=== PATIENT | female | born 1965 | race Caucasian/White ===

== ENCOUNTER 2022-07-05 07:32 | Outpatient (CLI) | payer BC, SELFPAY | END 2022-07-05 07:33 | disposition home or self-care (01) | PROVIDERS: PCP Physician Assistant; Visit Provider Family Medicine | DX: M54.16 Radiculopathy, lumbar region (principal) | CPT/HCPCS: 62323; J0702; Q9966 ==

== ENCOUNTER 2022-09-02 19:26 | Emergency (ER) | payer BC, SELFPAY ==
[2022-09-02 19:39] VITALS: BP 136/89; PULSE 108; RESP 22; TEMP 37.1; O2SAT 98; BMI 32.1
--- NOTE | 2022-09-02 20:29 | ED_ITS ---
HPI - Abdominal Pain General Chief Complaint: Abdominal Pain Stated Complaint: possible appendix pain Time Seen by Provider: 09/02/22 20:20 History of Present Illness HPI narrative: 57-year-old woman presenting to the emergency department with complaint of increasing crampy abdominal pain. This has been going on now about 6 hours. She did have a couple bowel movements yesterday and had 1 this morning and thought that maybe she needs to have another 1 this afternoon but could not. She has not had any fever. Is mildly nauseated. Did develop COVID last week starting with a scratchy throat progressing to myalgias. She is not having shortness of breath other than the appears that pain is making her breathe fast. Has a history of hysterectomy. Also at the end of the year had a back surgery. Has not been taking pain meds now for a couple of weeks. Sounds like this was [place]. She does report some difficulty coming out of anesthesia. Related Data Home Medications Medication Instructions Recorded Confirmed No Known Home Medications 09/02/22 09/02/22 Allergies Allergy/AdvReac Type Severity Reaction Status Date / Time azithromycin [From Zithromax] Allergy Verified 09/02/22 20:36 morphine Allergy Verified 09/02/22 20:36 promethazine [From Phenergan] Allergy Verified 09/02/22 20:36 Review of Systems Status of ROS Reports: 6 or more systems reviewed and unremarkable except as noted in History and below PFSH PFS Social History Smoking Status: Never smoker How often do you have a drink containing alcohol: never AUDIT-C Alcohol total score: 0 Non-prescribed substance use: denies use Exam Narrative: Exam Narrative: Pleasant. Clearly uncomfortable. Brow is furrowed. Speaking little plain to flee has a very uncomfortable. She is mildly labored and mildly tachypneic. Heart is elevated to tachycardic rate with regular rhythm. Oropharynx is moist. Cranial nerves 2-12 intact. Lower extremities are without edema. Tattoo at the right lower leg. Negative Homans or pain to palpation. Abdomen-I can not discern bowel sounds. She is quite tender to palpation across the low abdomen. No peritoneal signs. Const: Vital Signs, click to edit/add: Vital Signs - 24 hr 09/02/22 19:39 09/02/22 21:06 09/03/22 00:30 Temperature 98.8 F Pulse Rate [Left P ulse Oximeter] 108 H 78 Respiratory Rate 22 16 Blood Pressure [Ri ght Upper Arm] 136/89 131/78 Pulse Oximetry 98 95 97 Oxygen Delivery Me thod Room Air 09/03/22 00:00 09/02/22 23:00 09/02/22 22:00 Temperature Pulse Rate [Left P ulse Oximeter] 78 84 76 Respiratory Rate 16 16 16 Blood Pressure [Ri ght Upper Arm] 130/80 133/76 137/78 Pulse Oximetry 98 97 99 Oxygen Delivery Me thod Room Air Room Air Room Air 09/03/22 06:00 09/03/22 02:00 09/03/22 05:00 Temperature Pulse Rate [Left P ulse Oximeter] 66 72 Respiratory Rate 16 16 18 Blood Pressure [Ri ght Upper Arm] 137/84 129/74 144/90 H Pulse Oximetry 98 95 95 Oxygen Delivery Me thod Room Air Room Air Room Air 09/03/22 04:00 09/03/22 03:00 Temperature Pulse Rate [Left P ulse Oximeter] 64 64 Respiratory Rate 16 18 Blood Pressure [Ri ght Upper Arm] 132/74 139/78 Pulse Oximetry 96 96 Oxygen Delivery Me thod Room Air Room Air Documenting provider has reviewed patient's vital signs: yes Course Vital Signs Vital signs: Initial Vital Signs Temperature 98.8 F 09/02/22 19:39 Temperature Source Temporal Artery Scan 09/02/22 19:39 Pulse Rate 108 H 09/02/22 19:39 Respiratory Rate 22 09/02/22 19:39 Blood Pressure 136/89 09/02/22 19:39 Blood Pressure Mean 104 09/02/22 19:39 Blood Pressure Position Sitting 09/02/22 19:39 Pulse Oximetry 98 09/02/22 19:39 Vital Signs Temperature 98.8 F 09/02/22 19:39 Pulse Rate 108 H 09/02/22 19:39 Respiratory Rate 22 09/02/22 19:39 Blood Pressure 136/89 09/02/22 19:39 Pulse Oximetry 98 09/02/22 19:39 Temperature 98.8 F 09/02/22 19:39 Pulse Rate 66 09/03/22 06:00 Respiratory Rate 16 09/03/22 06:00 Blood Pressure 137/84 09/03/22 06:00 Pulse Oximetry 98 09/03/22 06:00 Oxygen Delivery Method 09/03/22 06:00 MDM - Abdominal Pain MDM Narrative Medical decision making narrative: Think imaging be helpful to discern what is going on here. Do not think this is just standard constipation. Would have concern about a bowel obstruction. Has been ordered for IV fluids, ketorolac and fentanyl. This did seem to help a good deal with her discomfort. Is able to relax. Labs with mildly elevated transaminases And white count also slightly elevated IV contrasted CT scan of abdomen and pelvis by my read shows edematous and mildly dilated loops of small bowel. Radiology over-read notes impending small-bowel obstruction IMPRESSION: 1. Multiple loops of prominent fluid filled small bowel. Although these are not pathologically dilated, there is a transition point in the anterior mid lower abdomen, and findings are worrisome for early developing small bowel obstruction. 2. Hyperemia of the affected small bowel wall, may be secondary to obstruction versus primary inflammatory process, such as Crohn`s disease. 3. Right paraspinal fluid collection at the level of L4-L5, query recent postsurgical change of laminectomy at this level. I did discuss these findings with our general surgeon on-call. As a Roxana is not having any flatus since the morning would presume total small-bowel obstruction. Do not have any hospital beds available. Will continue to manage/board here in the emergency department with IV fluids and pain management as needed. Overall improved. Still with intermittent cramp. Did have 1 small episode of flatus. No nausea/vomiting. Reauscultation with bowel sounds now present. Only mildly uncomfortable to abdominal palpation. I discussed again with our general surgeon Dr. Ashby. Still without beds available but does seem to be a little improved. Will support going home to oral trial returning if needed. Lab Data Attestation: I reviewed the patient's lab results. Labs: Lab Results 09/02/22 09/02/22 09/02/22 Range/Units 20:25 20:25 23:55 WBC 11.62 H (4.50-11.00) K/uL RBC 5.19 (4.00-5.20) m/uL Hgb 15.4 (12.0-16.0) gm/dL Hct 46.2 (33.0-51.0) % MCV 89 (80-100) fL MCH 30 (26-34) pg MCHC 33 (32-36) gm/dL RDW Coeff of [place] 12.6 (11.5-15.5) % Plt Count 350 (140-440) K/uL Neut % (Auto) 77.6 H (42.0-72.0) % Lymph % (Auto) 15.0 L (20-44) % [place] % (Auto) 5.2 (0.0-11.0) % Eos % (Auto) 1.7 (0.0-7.0) % Baso % (Auto) 0.3 (0.0-3.0) % Neut # (Auto) 9.00 H (1.7-7.0) K/uL Lymph # (Auto) 1.70 (0.90-2.90) K/uL [place] # (Auto) 0.60 (0.00-0.90) K/UL Eos # (Auto) 0.20 (0.00-0.50) K/uL Baso # (Auto) 0.00 (0.00-0.30) K/uL Sodium 139 (135-149) mmol/L Potassium 3.7 (3.6-5.1) mmol/L Chloride 102 (96-114) mmol/L Carbon Dioxide 28 (20-32) mmol/L BUN 10 (7-30) mg/dL Creatinine 0.6 (0.5-1.5) mg/dL Estimated Creat Clear 95.33 Estimated GFR 106 ml/min Glucose 114 (60-115) mg/dL Calcium 10.1 (8.4-10.6) mg/dL Total Bilirubin 0.7 (0.1-1.5) mg/dL Direct Bilirubin 0.2 (0.0-0.5) mg/dL AST 47 H (12-35) U/L ALT 37 H (4-35) U/L Alkaline Phosphatase 121 (40-150) U/L C-Reactive Protein < 0.5 L (0.5-1.0) mg/dL Total Protein 8.2 (6.0-8.3) g/dL Albumin 4.8 (3.3-5.0) g/dL Urine Color Yellow (Yellow) Urine Appearance Clear (Clear) Urine pH 7.5 (5.0-8.5) Ur Specific [place]ler 1.010 (1.000-1.030) Urine Protein Negative (Negative) Urine Glucose (UA) Negative (Negative) Urine Ketones Negative (Negative) Urine Blood Negative (Negative) Urine Nitrite Negative (Negative) Urine Bilirubin Negative (Negative) Urine Urobilinogen 0.2 (0.2-1.0) Ur Leukocyte Esterase Negative (Negative) Urine RBC 0-2 (0-2) Urine WBC 0-2 (0-5) Ur Squamous Epith Cells None (None-Few) Urine Bacteria None (None) Discharge Plan Discharge Clinical Impression: Complete small bowel obstruction, Abdominal pain Patient Disposition: Home w/ Parent or Adult Condition: Improved Additional Instructions: Just focus on liquid intake at this point. Clear liquid diet over the next 24- 36 hours. Diluted juices, soup broths advancing to thicker soups, smoothies. Return for marked increase in persistent pain, repeated vomiting, fever. You do have your Vicodin/[place] and senna if needed. I think we discussed our concerns about these medications as well. Sherri from [employer]. Prescriptions: No Action No Known Home Medications Follow Up/Referrals: Radha Casarez PA [Primary Care Provider] - Stand Alone Forms: [facility] Info Instructions
--- NOTE | 2022-09-02 20:32 | CRLHL7_ITS ---
For Patients: As a result of the Century Cures Act, medical imaging exams and procedure reports are released immediately into your electronic medical record. You may view this report before your referring provider. If you have questions, please contact your health care provider. INDICATION: Crampy abdominal pain. TECHNIQUE: CT abdomen and pelvis acquired with 95 mL Isovue 370 contrast. COMPARISON: CT abdomen/pelvis dated 07/30/2011. FINDINGS: Lower chest: Motion artifact. Subsegmental atelectasis in the left lower lobe. No focal consolidation. Liver: Too small to characterize hypodense lesion in the left lobe, likely benign in the absence of a known malignancy. Gallbladder and bile ducts: Unremarkable. Pancreas: Unremarkable. Spleen: Unremarkable. Adrenal glands: Unremarkable. Kidneys: Kidneys enhance symmetrically, without hydronephrosis. Retroperitoneum: No lymphadenopathy. Bowel and mesentery: Normal appendix. There are multiple loops of prominent fluid-filled small bowel, although not pathologically dilated. There is a transition point in the anterior mid lower abdomen. Furthermore, there is hyperemia of the affected small bowel wall. No significant ascites. No pneumoperitoneum. Bladder: Unremarkable for degree of distension. Reproductive organs: Posthysterectomy. Pelvic lymph nodes: No lymphadenopathy. Vessels: Unremarkable. Abdominal wall: No acute abdominal wall abnormality. Bones: There is a right paraspinal fluid collection at the level of L4-L5, query recent postsurgical change of laminectomy at this level. IMPRESSION: 1. Multiple loops of prominent fluid filled small bowel. Although these are not pathologically dilated, there is a transition point in the anterior mid lower abdomen, and findings are worrisome for early developing small bowel obstruction. 2. Hyperemia of the affected small bowel wall, may be secondary to obstruction versus primary inflammatory process, such as Crohn`s disease. 3. Right paraspinal fluid collection at the level of L4-L5, query recent postsurgical change of laminectomy at this level. Please note that all CT scans at this facility use dose modulation, iterative reconstruction, and/or weight-based dosing when appropriate to reduce radiation dose to as low as reasonably achievable. Dictated by Matthias Hopkins MD @ 09/02/2022 9:21:21 PM (Electronically Signed)
[2022-09-02 20:55] LABS: Basophils Percent Auto 0.3 % (0.0-3.0); Eosinophils Percent Auto 1.7 % (0.0-7.0); Hematocrit 46.2 % (33.0-51.0); Hemoglobin* 15.4 gm/dL (12.0-16.0); Immature Granulocytes Pct Auto 0.2 %; Mean Corpuscular HGB Conc 33 gm/dL (32-36); Mean Corpuscular Hemoglobin 30 pg (26-34); Mean Corpuscular Volume 89 fL (80-100); Monocytes Percent Auto 5.2 % (0.0-11.0); Neutrophils Percent Auto 77.6 % (42.0-72.0); Platelet Count* 350 K/uL (140-440); RDW Coefficient of Variation % 12.6 % (11.5-15.5); Red Blood Count 5.19 m/uL (4.00-5.20); White Blood Count* 11.62 K/uL (4.50-11.00)
[2022-09-02 20:57] LABS: Albumin* 4.8 g/dL (3.3-5.0); Chloride* 102 mmol/L (96-114); Sodium* 139 mmol/L (135-149)
[2022-09-02 20:58] LABS: Potassium* 3.7 mmol/L (3.6-5.1)
[2022-09-02 20:59] LABS: Creatinine* 0.6 mg/dL (0.5-1.5); Est. Creatinine Clearance* 95.33; Estimated Glomerular Filt Rate 106 ml/min
[2022-09-02 21:00] LABS: Alkaline Phosphatase* 121 U/L (40-150); Aspartate Amino Transferase* 47 U/L (12-35); Bilirubin Direct* 0.2 mg/dL (0.0-0.5); Bilirubin Total* 0.7 mg/dL (0.1-1.5); Blood Urea Nitrogen* 10 mg/dL (7-30); Carbon Dioxide* 28 mmol/L (20-32); Total Protein* 8.2 g/dL (6.0-8.3)
[2022-09-02 21:01] LABS: Alanine Aminotransferase* 37 U/L (4-35); Calcium* 10.1 mg/dL (8.4-10.6); Glucose* 114 mg/dL (60-115)
[2022-09-02 21:04] LABS: C Reactive Protein* < 0.5 mg/dL (0.5-1.0)
[2022-09-02 21:06] VITALS: O2SAT 95
[2022-09-02 21:06] LABS: Slide Review Reflex No
[2022-09-02] MEDS: KETOROLAC 30 MG/ML inj IVP (21:32)
[2022-09-02] MEDS: fentaNYL 100 MCG/2 ML inj 50 MCG IVP (21:32)
[2022-09-02] MEDS: 0.9 % SODIUM CHLORIDE 1000 ml 1,000 ML IV ×2 (21:32→23:17)
[2022-09-02 22:00] VITALS: BP 137/78; PULSE 76; RESP 16; O2SAT 99
--- NOTE | 2022-09-02 22:18 | ED.NURSE ---
pt given ice chips, okd per
[2022-09-02 23:00] VITALS: BP 133/76; PULSE 84; RESP 16; O2SAT 97
[2022-09-03] VITALS (38 sets, daily range): BP systolic 129–144; BP diastolic 74–90; PULSE 64–93; RESP 16–18; O2SAT 85–99
[2022-09-03 00:01] LABS: Appearance Urine Clear (Clear); Bilirubin Urine Negative (Negative); Blood Urine Negative (Negative); Color Urine Yellow (Yellow); Glucose Urine Negative (Negative); Ketones Urine Negative (Negative); Leukocyte Esterase Urine Negative (Negative); Nitrite Urine Negative (Negative); Protein Urine Negative (Negative); Urobilinogen Urine 0.2 (0.2-1.0); pH Urine 7.5 (5.0-8.5)
[2022-09-03 00:06] LABS: RBC Urine 0-2 (0-2); WBC Urine 0-2 (0-5)
[2022-09-03] MEDS: 0.9 % SODIUM CHLORIDE 1000 ml 1,000 ML 150 ML IV (03:17)
== END 2022-09-03 09:10 | disposition home or self-care (01) ==
PROVIDERS: Emergency Provider Family Medicine; PCP Physician Assistant
DX: K56.601 Complete intestinal obstruction, unspecified as to cause (principal); R10.9 Unspecified abdominal pain
CPT/HCPCS: 36415; 74177; 80048; 80076; 81001; 85025; 86140; 94761; 96361; 96374; 96375; 99284; 99285; J1885; J3010; J7030; Q9967

== ENCOUNTER 2022-09-04 18:01 | Emergency (ER) | payer BC, SELFPAY ==
[2022-09-04 18:15] VITALS: BP 125/83; PULSE 84; RESP 16; TEMP 36.6; O2SAT 97; BMI 31.6
--- NOTE | 2022-09-04 18:43 | CRLHL7_ITS ---
For Patients: As a result of the Century Cures Act, medical imaging exams and procedure reports are released immediately into your electronic medical record. You may view this report before your referring provider. If you have questions, please contact your health care provider. INDICATION: Diarrhea. TECHNIQUE: CT abdomen and pelvis without contrast. COMPARISON: September 02, 2022. FINDINGS: Lower chest: Unremarkable. Liver: Normal in size and attenuation. No suspicious masses. Gallbladder and bile ducts: Vicarious excretion of contrast. Pancreas: Unremarkable. No mass or inflammation. Spleen: Normal in size. No masses. Adrenal glands: Normal in size. No nodules. Kidneys: Normal in size. No suspicious masses, stones, or hydronephrosis. GI tract: Re-demonstration of wall thickening, incompletely characterized on this noncontrast study, of multiple loops of distal small bowel. No bowel obstruction. Normal appendix. Vasculature: Abdominal aorta is normal in caliber. Lymph nodes: No lymphadenopathy. Peritoneum/Abdominal Wall: Unremarkable. No sign of mass or infiltration. No free air or significant free fluid. Pelvis: Unremarkable. No pelvic masses. Bones: Unchanged. Similar right paraspinal fluid collection at L4-L5. IMPRESSION: Re-demonstration of distal small bowel wall thickening, incompletely characterized on this noncontrast study, but likely involving a larger segment of bowel since prior study. Findings are suggestive of worsening enteritis, infectious/inflammatory, including Crohn`s disease. No bowel obstruction. Please note that all CT scans at this facility use dose modulation, iterative reconstruction, and/or weight-based dosing when appropriate to reduce radiation dose to as low as reasonably achievable. Dictated by Jerome Carlin MD @ 09/04/2022 7:58:23 PM (Electronically Signed)
--- NOTE | 2022-09-04 18:46 | ED_ITS ---
HPI - General Adult General Time Seen by Provider: 18:46 Date Seen: 09/04/22 Chief complaint: Diarrhea Stated complaint: diarrhea Time Seen by Provider: 09/04/22 18:28 Source: patient, family and old records reviewed Mode of arrival: ambulatory Limitations: no limitations History of Present Illness HPI narrative: 57-year-old female who comes in today with diarrhea. Patient was seen 2 days in at that time demonstrated possible developing bowel obstruction, also some hyperemia of the small bowel. Labs at that time were reassuring. Today patient developed diarrhea, called the nurse line and was told to come the emergency department. She is still having some mild low abdominal pain. She denies urinary symptoms. No fevers. No chest pain, shortness of breath, or lightheadedness. Related Data Home Medications Medication Instructions Recorded Confirmed hydrocodone 5 mg-acetaminophen 325 tab 09/04/22 mg tablet levothyroxine 88 mcg tablet mcg 09/04/22 Allergies Allergy/AdvReac Type Severity Reaction Status Date / Time azithromycin [From Zithromax] Allergy Verified 09/02/22 20:36 morphine Allergy Verified 09/02/22 20:36 promethazine [From Phenergan] Allergy Verified 09/02/22 20:36 PFSH PFSH Social History Smoking Status: Never smoker How often do you have a drink containing alcohol: never AUDIT-C Alcohol total score: 0 Non-prescribed substance use: denies use Exam Narrative: Exam Narrative: General: Well-developed and well-nourished, no acute distress Head: Atraumatic and normocephalic Eyes: Pupils are equal reactive, extraocular motions intact, conjunctiva clear ENT: External nose and ears are normal, posterior pharynx without erythema or exudate Neck: No midline cervical tenderness, full spontaneous range of motion the neck, trachea midline, no adenopathy Heart: Regular rate and rhythm no murmurs or thrills Lungs: Clear to auscultation bilaterally without wheezes or crackles Abdomen: Soft, mild diffuse lower abdominal tenderness,, nondistended with active bowel sounds Musculoskeletal: No tenderness, deformity, or edema Neurologic: Awake, alert, and oriented x3, no gross focal neurologic deficits, cranial nerves intact as tested Psych: Mood and affect are appropriate Skin: No rashes Const: Vital Signs, click to edit/add: Vital Signs - 24 hr 09/04/22 18:15 Temperature 97.8 F Pulse Rate [Right Pulse Oximeter] 84 Respiratory Rate 16 Blood Pressure [Ri ght Upper Arm] 125/83 Pulse Oximetry 97 Oxygen Delivery Me thod Room Air Course Course Hospital Course: Patient seen examined, prior records reviewed show abnormal CT scan a couple days ago with reassuring labs other than mild leukocystosis. On exam, patient has some mild abdominal tenderness, vital is stable. Patient seen a couple days ago with possible developing small bowel obstruction, now with diarrhea. She has no vomiting or abdominal is unlikely. CT scan done a couple days ago showed fluid filled loops of small bowel and hyperemia of the small bowel wall which could be from fraction inflammatory process. Based on development of watery diarrhea today, this likely represents inflammatory process or a viral enteritis. Labs are ordered along with IV fluids, repeat CT scan to re-evaluate for intra-abdominal pathology Reevaluation(s) Reevaluation #1: Labs independently by interpreted by me demonstrate normal white blood cell count, basic panel is reassuring. CT scan demonstrates continued several loops of small bowel, no evidence for obstruction, most consistent with worsening of enteritis. Given clinical history today, as well as patient having no history of, this most likely represents an infectious enteritis. Symptom management and patient can take Imodium for diarrhea Time: 20:16 Vital Signs Vital signs: Initial Vital Signs Temperature 97.8 F 09/04/22 18:15 Temperature Source Temporal Artery Scan 09/04/22 18:15 Pulse Rate 84 09/04/22 18:15 Pulse Rhythm 09/04/22 18:15 Respiratory Rate 16 09/04/22 18:15 Blood Pressure 125/83 09/04/22 18:15 Blood Pressure Mean 97 09/04/22 18:15 Pulse Oximetry 97 09/04/22 18:15 Oxygen Delivery Method 09/04/22 18:15 Vital Signs Temperature 97.8 F 09/04/22 18:15 Pulse Rate 84 09/04/22 18:15 Respiratory Rate 16 09/04/22 18:15 Blood Pressure 125/83 09/04/22 18:15 Pulse Oximetry 97 09/04/22 18:15 Oxygen Delivery Method 09/04/22 18:15 Temperature 97.8 F 09/04/22 18:15 Pulse Rate 84 09/04/22 18:15 Respiratory Rate 16 09/04/22 18:15 Blood Pressure 125/83 09/04/22 18:15 Pulse Oximetry 97 09/04/22 18:15 Oxygen Delivery Method 09/04/22 18:15 Medical Decision Making Lab Data Labs: Lab Results 09/04/22 09/04/22 Range/Units 19:20 19:20 WBC 10.57 (4.50-11.00) K/uL RBC 4.73 (4.00-5.20) m/uL Hgb 14.2 (12.0-16.0) gm/dL Hct 41.9 (33.0-51.0) % MCV 89 (80-100) fL MCH 30 (26-34) pg MCHC 34 (32-36) gm/dL RDW Coeff of [place] 12.9 (11.5-15.5) % Plt Count 292 (140-440) K/uL Neut % (Auto) 77.8 H (42.0-72.0) % Lymph % (Auto) 13.2 L (20-44) % [place] % (Auto) 6.8 (0.0-11.0) % Eos % (Auto) 0.9 (0.0-7.0) % Baso % (Auto) 0.2 (0.0-3.0) % Neut # (Auto) 8.20 H (1.7-7.0) K/uL Lymph # (Auto) 1.40 (0.90-2.90) K/uL [place] # (Auto) 0.70 (0.00-0.90) K/UL Eos # (Auto) 0.10 (0.00-0.50) K/uL Baso # (Auto) 0.02 (0.00-0.30) K/uL Sodium 139 (135-149) mmol/L Potassium 4.1 (3.6-5.1) mmol/L Chloride 106 (96-114) mmol/L Carbon Dioxide 27 (20-32) mmol/L BUN 14 (7-30) mg/dL Creatinine 0.8 (0.5-1.5) mg/dL Estimated Creat Clear 71.50 Estimated GFR 87 ml/min Glucose 99 (60-115) mg/dL Calcium 9.3 (8.4-10.6) mg/dL Discharge Plan Discharge Clinical Impression: Enteritis Patient Disposition: Home, Self-Care Condition: Stable Instructions: Acute Diarrhea (ED) Additional Instructions: Transition to regular diet over the next. You may take Imodium to help with diarrhea. Activity Level: No Restrictions Discharge Diet: Regular Prescriptions: No Action hydrocodone-acetaminophen 5-325 mg tablet Label Comments: TAKE ONE TABLET BY MOUTH THREE TIMES A DAY NEEDED FOR PAIN MAX ACETAMINOPHEN DOSE 4000MG / 24HRS levothyroxine 88 mcg tablet Label Comments: TAKE ONE TABLET BY MOUTH EVERY DAY Follow Up/Referrals: Radha Casarez PA [Primary Care Provider] - Stand Alone Forms: [facility] Info Instructions
[2022-09-04 19:31] LABS: Basophils Absolute Auto 0.02 K/uL (0.00-0.30); Basophils Percent Auto 0.2 % (0.0-3.0); Eosinophils Percent Auto 0.9 % (0.0-7.0); Hematocrit 41.9 % (33.0-51.0); Hemoglobin* 14.2 gm/dL (12.0-16.0); Immature Granulocytes Abs Auto 0.12 K/uL (0.00-0.30); Immature Granulocytes Pct Auto 1.1 %; Lymphocytes Percent Auto 13.2 % (20-44); Mean Corpuscular HGB Conc 34 gm/dL (32-36); Mean Corpuscular Hemoglobin 30 pg (26-34); Mean Corpuscular Volume 89 fL (80-100); Monocytes Percent Auto 6.8 % (0.0-11.0); Neutrophils Percent Auto 77.8 % (42.0-72.0); Platelet Count* 292 K/uL (140-440); RDW Coefficient of Variation % 12.9 % (11.5-15.5); Red Blood Count 4.73 m/uL (4.00-5.20); White Blood Count* 10.57 K/uL (4.50-11.00)
[2022-09-04] MEDS: 0.9 % SODIUM CHLORIDE 1000 ml 1,000 ML IV (19:40)
[2022-09-04 19:53] LABS: Slide Review Reflex No
[2022-09-04 19:55] LABS: Chloride* 106 mmol/L (96-114)
[2022-09-04 19:56] LABS: Potassium* 4.1 mmol/L (3.6-5.1); Sodium* 139 mmol/L (135-149)
[2022-09-04 19:58] LABS: Creatinine* 0.8 mg/dL (0.5-1.5); Estimated Glomerular Filt Rate 87 ml/min
[2022-09-04 19:59] LABS: Blood Urea Nitrogen* 14 mg/dL (7-30); Calcium* 9.3 mg/dL (8.4-10.6); Carbon Dioxide* 27 mmol/L (20-32); Glucose* 99 mg/dL (60-115)
[2022-09-04] MEDS: LOPERAMIDE HCL 2 MG CAPSULE PO (20:27)
== END 2022-09-04 20:44 | disposition home or self-care (01) ==
PROVIDERS: Emergency Provider Family Medicine; PCP Physician Assistant
DX: K52.9 Noninfective gastroenteritis and colitis, unspecified (principal)
CPT/HCPCS: 36415; 74176; 80048; 85025; 99284; A9270; J7030

== ENCOUNTER 2024-02-21 16:15 | Outpatient (RCR) | payer OTHER, SELFPAY | END 2024-06-20 23:59 | disposition home or self-care (01) | PROVIDERS: PCP Family Medicine; Visit Provider Orthopaedic Surgery Sports Medicine | DX: M17.11 Unilateral primary osteoarthritis, right knee (principal); Z96.651 Presence of right artificial knee joint; M25.561 Pain in right knee; M62.81 Muscle weakness (generalized); Z51.89 Encounter for other specified aftercare | CPT/HCPCS: 97110; 97161 ==

== ENCOUNTER 2024-02-28 06:04 | Day surgery (SDC) | payer OTHER, SELFPAY ==
[2024-02-28] VITALS (17 sets, daily range): BP systolic 102–150; BP diastolic 66–96; PULSE 56–82; RESP 7–18; TEMP 35.8–36.6; O2SAT 92–100; BMI 32.8
[2024-02-28] MEDS: ACETAMINOPHEN 500 MG TABLET 1000 MG PO (06:20)
[2024-02-28] MEDS: OXYCODONE (CR) 10 MG TAB.ER.12H PO (06:20)
[2024-02-28] MEDS: LACTATED RINGERS 1000 ML 1,000 ML 100 ML IV ×3 (06:30→12:35)
[2024-02-28] MEDS: SODIUM CHLORIDE 0.9 % (FLUSH) 10 ML SYRINGE IVF (06:30)
--- NOTE | 2024-02-28 07:07 | PM.ORPRC ---
Procedure Note Date of procedure: 02/28/24 Procedure: PREOPERATIVE DIAGNOSIS: 1. Right knee osteoarthritis, primary, severe POSTOPERATIVE DIAGNOSIS: 1. Right knee osteoarthritis, primary, severe PROCEDURE: 1. Right total knee arthroplasty SURGEON: Quang Garcia MD. OPERATIONS OFFICER AFLOAT: HSAMIKA Yeboah - Of note, a skilled catering administrative assistant was critical for this case to aid in patient positioning, tissue retraction, limb manipulation/positioning, and closure. ANESTHESIA: Spinal anesthetic EBL: 50ml IMPLANTS: DePuy J&J uncemented femur/tibia, cemented patella TKA - Attune Press fit PS femur size 4 regular, size 4 tibia, 5 poly spacer, 35 mm cemented patella TOURNIQUET: 90 min at 300 torr COMPLICATIONS: None evident INDICATIONS: The patient is a pleasant 59-year-old female who has experienced severe right knee pain and difficulty bearing weight. Workup included x-rays which revealed severe osteoarthrosis in the knee. Given the deformity, the dysfunction, and the pain, as well as the failure of nonoperative management, recommendation was made for surgery. FINDINGS: Full-thickness chondral loss diffusely throughout the medial and patellofemoral compartment. To lesser degree lateral compartment. Degenerative meniscus pathology. Small effusion upon entering the joint. Relatively strong/healthy bone quality. DESCRIPTION OF PROCEDURE: Following a thorough discussion of risks, benefits, and alternatives consent was obtained and the right knee was marked. The patient was brought to the operating room and placed supine on the operating table. Induction of anesthesia was undertaken. 2 g IV Ancef and 1 g tranexamic acid was administered within 1 hr of incision preoperatively. Proper time-out was performed identifying proper patient, site, procedure. The operative extremity was prepped and draped in the appropriate sterile fashion using ChloraPrep after the patient was positioned supine with all bony prominences well padded. A longitudinal, anterior, midline skin incision was made starting approximately 3cm proximal to the superior pole of the patella and advanced distal to the tibial tubercle. A sub vastus approach was utilized. After mobilizing the patella, retropatellar fatpad was resected and the synovium in the suprapatellar pouch excised to visualize the anterior femoral cortex. We began with cutting the patella to help improve mobility of this patella and quad tendon. The patella was initially measured and found have a thickness of 22 mm. It was resected back to approximately 14 mm. Femoral preparation was performed via an intramedullary guide. Step drill allowed access into the femoral canal. The distal cutting guide was placed with 5? of valgus and 11 mm cut on the distal femur due to a 5-7 degree flexion contracture. Femur was sized using a anterior referencing guide in 3? of external rotation. This found have a best fit with the sizing noted above. The 4 in 1 cutting block was then placed, and the distal femur shaped accordingly. The box cut was then created and the trial implant inserted to confirm appropriate fit. We turned our attention to the proximal tibia. Extramedullary guide was utilized for cutting with the goal of being 90 degree cut from the mechanical axis of the tibia in the varus/valgus plane utilizing tibial crest as the primary alignment. Initially a 2 mm resection was performed from the medial tibial plateau. Ultimately, balancing was achieved in both flexion and extension in both varus and valgus. The knee was able to achieve full extension comfortably. It was sized to be a best fit with as noted above. The patella prep was completed with drilling and a trial placed. At this stage, trial implants were removed, the tibia and femoral components were opened and inserted. Thereafter, the patella was thoroughly irrigated normal saline and dried. The cement was previously mixed on the back table and cement placed followed by the implant. This was clamped and allowed remained stable until the cement cured. The real poly spacer was opened and inserted. All extra cement was removed, and a 3 min Betadine soak performed. Finally, a final irrigation round with normal saline was performed. Closure performed with 0 PDS and #0 Stratafix for the quad tendon/retinaculum. 2-0 Vicryl/Stratafix for the subcutaneous and 4-0 Monocryl for subcuticular closure. Dressings were applied and the patient was awoken from anesthesia after the tourniquet deflated and transferred the PACU in stable condition. A skilled catering administrative assistant was critical for this case to aid in patient positioning, tissue retraction, bone exposure, limb manipulation/positioning, patient safety, and closure. PLAN: 1. Weight bear as tolerated operative extremity. 2. 23 hr perioperative antibiotics. 3. Ice. 4. PT/OT consults for ambulation assistance/mobility education. 5. Social work consult for discharge planning. 6. DVT prophylaxis with at SCDs, Elliot Hose, and aspirin twice daily.
--- NOTE | 2024-02-28 07:09 | W.PM.H&PU ---
History & Physical Update History & Physical Update H&P Reviewed and patient assessed: No changes noted
[2024-02-28] MEDS: MIDAZOLAM HCL 1 MG/ML inj IVP (07:15)
[2024-02-28] MEDS: fentaNYL 100 MCG/2 ML inj IVP (07:15)
--- NOTE | 2024-02-28 07:25 | SUR.PREOP ---
TIME?OUT:?0715 PT/Olive SHAFER RN/Larry BECK MDA?VERIFICATION?OF?SURGICAL?SITE,?PROCEDURE,?AND?CONSENT OBTAINED?PRIOR?TO?INVASIVE?PROCEDURE.
[2024-02-28] MEDS: CEFAZOLIN 2 GM in 0.9 % SODIUM CHLORIDE Mini-bag 100 ML IVPB (07:40)
[2024-02-28] MEDS: TRANEXAMIC ACID 100 MG/ML INJ 1000 MG IV (07:42)
--- NOTE | 2024-02-28 09:32 | W.ANESCHARGE ---
Anesthesia Charges Start Date/Time Anesthesia Start Date: 02/28/24 Anesthesia Start Time: 07:23 Stop Date/Time Anesthesia Stop Date: 02/28/24 Anesthesia Stop Time: 09:30
--- NOTE | 2024-02-28 09:35 | W.ANESCHARGE ---
Anesthesia Charges Start Date/Time Anesthesia Start Date: 02/28/24 Anesthesia Start Time: 07:23 Stop Date/Time Anesthesia Stop Date: 02/28/24 Anesthesia Stop Time: 09:30
--- NOTE | 2024-02-28 09:36 | P.NB_ITS ---
Nerve Block Nerve Block Time Seen by Provider: 07:18 Date Seen: 02/28/24 Type of block requested by surgeon for post-operative analgesia: geniculars Side: right Time out performed: Yes Verification of patient name: Yes Verification of date of : Yes Site marking: site marked Name of person performing procedure: Howard Continuous monitoring Was continuous monitoring of O2 sat, B/P, playground monitor, recorded every 15 minutes?: Yes Procedure Checklist: sterile prep, needles and gloves Medications given in 5ml increments after negative aspiration: Ropivicaine %: 0.5 mL: 9 Needle gauge: 25 Patient tolerated procedure well: Yes Block Charges Block Charge (with Pro Fee): Genicular Nerve Block Use of Ultrasound Machine for Block: No
--- NOTE | 2024-02-28 09:36 | W.PM.NB ---
Nerve Block Nerve Block Time Seen by Provider: 07:18 Date Seen: 02/28/24 Type of block requested by surgeon for post-operative analgesia: adductor canal Side: right Time out performed: Yes Verification of patient name: Yes Verification of date of : Yes Site marking: site marked Name of person performing procedure: Howard Continuous monitoring Was continuous monitoring of O2 sat, B/P, director quality systems, recorded every 15 minutes?: Yes Procedure Checklist: sterile prep, needles and gloves Ultrasound guided. Images saved: Yes Medications given in 5ml increments after negative aspiration: Ropivicaine %: 0.5 mL: 20 Needle gauge: 20 Decadron (mg): 10 Precedex (mcg): 25 Patient tolerated procedure well: Yes Additional comments: Needle noted adjacent to nerve Block Charges Block Charge (with Pro Fee): Femoral Nerve Use of Ultrasound Machine for Block: Yes- US Guidance/pain block
--- NOTE | 2024-02-28 09:42 | CRLHL7_ITS ---
For Patients: As a result of the Century Cures Act, medical imaging exams and procedure reports are released immediately into your electronic medical record. You may view this report before your referring provider. If you have questions, please contact your health care provider. INDICATION: Postop. TECHNIQUE: Portable two-view study right knee. FINDINGS: Total knee arthroplasty on the right. Anatomic alignment and intact hardware. Dictated by Shaylee Chavarria MD @ 02/29/2024 1:56:44 PM (Electronically Signed)
[2024-02-28] MEDS: METOCLOPRAMIDE HCL 5 MG/ML INJ 10 MG IVP (12:35)
== END 2024-02-28 14:45 | disposition home or self-care (01) ==
PROVIDERS: PCP Family Medicine; Visit Provider Orthopaedic Surgery Sports Medicine
PROC: (CPT 27447; principal; 2024-02-28 07:15)
DX: M17.11 Unilateral primary osteoarthritis, right knee (principal); G89.18 Other acute postprocedural pain; R73.03 Prediabetes
CPT/HCPCS: 27447; 01402; 64447; 64454; 73560; 76942; 97110; 97116; 97161; 97530; A9270; C1776; J0690; J1100; J2250; J2405; J2704; J2765; J2795; J3010; J7120

== ENCOUNTER 2024-03-05 12:18 | Outpatient (CLI) | payer OTHER, SELFPAY ==
--- NOTE | 2024-03-05 12:00 | CRLHL7_ITS ---
For Patients: As a result of the Century Cures Act, medical imaging exams and procedure reports are released immediately into your electronic medical record. You may view this report before your referring provider. If you have questions, please contact your health care provider. INDICATION: Leg pain and swelling. TECHNIQUE: Ultrasound venous duplex right lower extremity. Compression venous exam was performed using caicedo-scale, color Doppler, and spectral Doppler analysis. COMPARISON: None. FINDINGS: Patent right common femoral vein, femoral vein, and popliteal vein. The calf veins are difficult to sonographically visualized, however, there is probable deep venous thrombosis in the right peroneal veins as they are not definitely compressible and there appears to be echogenic material within the lumen. IMPRESSION: The calf veins are difficult to sonographically visualized, but there is probably deep venous thrombosis in the right peroneal veins. Dictated by Reggie Prado MD @ 03/05/2024 1:14:28 PM (Electronically Signed)
--- OUTSIDE RECORDS SUMMARY | 2024-03-05 12:22 | XMS_ITS | Clinical Summary ---
Author Organization [facility] Address [place], [place] [address] Care Team Providers Care Regional Clinical Director Name Role Phone Shirley Lopez MD Primary Care Provider Allergies Active Allergy Reactions Criticality Noted Date Comments Adhesive Tape-Silicones Rash 09/13/2022 Fentanyl Other - Describe In Comment Field 02/14/2024 Difficulty waking from surgery Morphine Agitation 06/09/2017 Promethazine Paresthesias 03/20/2012 Azithromycin Diarrhea 03/05/2009 Medications Medication Sig Dispensed Refills Start Date End Date Status cholecalciferol (VITAMIN D) 1,000 unit tabletIndications:Stiven ramos physical exam Take 1 tablet by mouth once daily. 0 05/23/2017 Active multivitamin (MVI) tablet Take 1 Tablet by mouth once daily. 0 09/30/2021 Active levothyroxine (SYNTHROID) 88 mcg tabletIndications:Acqui red hypothyroidism Take 1 Tablet (88 mcg) by mouth once daily. 100 Tablet 3 04/14/2023 Active Active Problems Problem Noted Date Diagnosed Date Primary osteoarthritis of right knee 11/24/2023 Primary osteoarthritis of left knee 11/24/2023 Complete small bowel obstruction 04/14/2023 Prediabetes 08/02/2022 Routine adult health maintenance 06/09/2017 Overview: Colonoscopy 06/2017 normal repeat in 10 years Seasonal affective disorder 05/23/2017 Migraine Unspecified hypothyroidism Encounters Date Type Department Care Team Description 02/28/2024 Orders Only [facility] Scanner 1 scan: (1-Ord) [facility], KNEE RT 2 VIEW, 02/28/2024 02/16/2024 [facility]phone [facility] [address] [place] [address] Shirley Lopez MD Results 02/14/2024 12:40 PM CDT [facility] [address] [facility] [address] Shirley Lopez MD Preoperative Exam (02/28/24 Right knee replacement [facility] ) 02/14/2024 Travel from Last 3 Months Immunizations Name Administration Dates Next Due COVID-19 vaccine ([email or web address] 30mcg/0.3mL) PF, MDV 06/04/2021,05/12/2021 Influenza Intradermal PF 18-64 yrs 05/27/2016 Influenza, IIV4 05/18/2022,,05/30/2020,2018,05/30/2018,06/01/2017 Td (Age >=7 Years) 08/08/2003 Tdap 05/01/2021,07/05/2011 Family History Medical History Relation Name Comments Alcoholism Brother Depression Brother Diabetes Brother Migraines Brother Obesity Brother Alcoholism Father Depression Father Diabetes Father Heart Disease Father 84 yr Hyperlipidemia Father Hypertension Father Kidney disease Father Obesity Father Asthma Maternal Aunt 1 Cancer-colon Maternal Aunt 2 Thyroid Disease Maternal Aunt 3 Stroke Maternal Aunt 4 Arthritis Mother Cancer Mother Depression Mother Diabetes Mother 76 yr Hypertension Mother Migraines Mother Obesity Mother Psychiatric illness Mother Cancer-breast Other Niece Alcoholism Sister 1 Cancer Sister 1 thyroid Depression Sister 1 Diabetes Sister 1 Migraines Sister 1 Obesity Sister 1 Diabetes Sister 2 Psychiatric illness Sister 3 Relation Name Status Comments Brother Father Maternal Aunt 1 Maternal Aunt 2 Maternal Aunt 3 Maternal Aunt 4 Mother Other Sister 1 Sister 2 Sister 3 Social History Tobacco Use Types Packs/Day Years Used Date Smoking Tobacco: Never Smokeless Tobacco: Never Tobacco Cessation:Counseling Given: Yes Alcohol Use Standard Drinks/Week Comments Yes 0 (1 standard drink = 0.6 oz pur e alcohol) occasional PHQ-2 Answer Date Recorded PHQ-2 TOTAL SCORE 2 04/14/2023 Social Connections Answer Date Recorded Frequency of Communication with Friends and Fami ly 0 02/14/2024 Financial Resource Strain Answer Date R ecorded Difficulty of Paying Living Expenses 3 02/14/2024 Difficulty of Paying Living Expenses Not on file 02/14/2024 Food Insecurity Answer Date Recorded Worried About Running Out of Food in the Last Ye ar 1 02/14/2024 Transportation Needs Answer Date Record ed Lack of Transportation (Medical) 1 02/14/2024 Housing Stability Answer Date Recorded Unable to Pay for Housing in the Last Year 1 02/14/2024 Sex and Gender Information Value Date Recorded Sex Assigned at Not on file Gender Identity Not on file Sexual Orientation Not on file Obstetrics History Para Term AB IAB SAB Ectopic Multiple Livin g Live Births 3 3 3 3 Date Outcome GA Total Labor Labor/2nd/3rd Weight Sex Type Anes PTL Nisreen A1 A5 Name Clin Term Term Term Last Filed Vital Signs Vital Sign Reading Time Taken Comments Blood Pressure 122/83 02/14/2024 12:46 PM CDT Pulse 75 02/14/2024 12:46 PM CDT Temperature 37.2 ??C (99 ??F) 08/22/2023 6:49 PM SENIOR ELECTRICAL DESIGNER Respiratory Rate 18 08/22/2023 6:49 PM SENIOR ELECTRICAL DESIGNER Oxygen Saturation 97% 02/14/2024 12:46 PM CDT Inhaled Oxygen Concentration - - Weight 89.4 kg (197 lb) 02/14/2024 12:46 PM CDT Height 163.6 cm (5' 4.41) 04/14/2023 2:40 PM CD T Body Mass Index 33.39 04/14/2023 2:40 PM CDT Plan of Treatment Health Maintenance Due Date Last Done Comments HIV for age 15-65 1982 Zoster (shingles) series for age 50+ (1 of 2) 2017 COVID-19 vaccine series ( season) 2023 06/04/2021, 05/12/2021 Influenza for age 50-64 04/07/2024 05/18/20, 05/01/2021, 05/30/2020, Additional history exists BMI (ht and wt on same day) for age 18+ 04/14/2024 04/14/2023, 08/02/2022, 07/14/2022, Additional history exists Depression screening for age 12+ 04/14/2024 04/14/2023, 05/19/2022, 04/20/2021, Additional history exists Mammogram for age 45-75 05/17/2024 05/17/20 23, 05/04/2020, 06/01/2017, Additional history exists Colonoscopy through age 75 06/09/202706/09, 06/09/2017, 06/09/2017 Lipids for age 45-75 04/14/2028 04/14/2023, 05/19/2022, 04/20/2021, Additional history exists Tetanus booster 05/01/2031 05/01/2021, 06/08, 08/08/2003 Tdap Completed 05/01/2021, 07/05/2011 Hepatitis C screening for age 18-79 Completed 05/19/2022 Pneumococcal series for age 6-64 Aged Out No longer eligible based on patient's age to complete this topic Procedures Procedure Name Priority Date/Time Associated Diagnosis Comments SCAN-RADIOLOGY REPORT 02/28/2024 12:00 AM CDT CBC WITH AUTO DIFFERENTIAL Routine 02/14/2024 1:32 PM CDT Fatigue, unspecified type TSH WITH REFLEX Routine 02/14/2024 1:32 PM CDT Fatigue, unspecified type CBC WITH AUTO DIFFERENTIAL Routine 02/14/2024 1:32 PM CDT Fatigue, unspecified type COMP METABOLIC PANEL Routine 02/14/2024 1:32 PM CDT Fatigue, unspecified type HEMOGLOBIN A1C SCREENING Routine 02/14/2024 1:32 PM CDT Prediabetes XR MAMMO BILAT SCREENING Routine 05/17/2023 3:32 PM CDT Encounter for screening mammogram for malignant neoplasm of breast LIPID PANEL W REFLEX MEASURED LDL Routine 04/14/2023 3:47 PM CDT Screening for lipid disorders ANTI HCV Routine 05/19/2022 10:50 AM CDT Need for hepatitis C screening test COLONOSCOPY 06/09/2017 8:22 AM CDT from Last 3 Months or Most Recently Relevant to Health Maintenance Results * SCAN-RADIOLOGY REPORT (02/28/2024 12:00 AM CDT) Anatomical Region Laterality Modality Other Scanner OTHER * CBC WITH AUTO DIFFERENTIAL (02/14/2024 1:32 PM CDT) WHITE BLOOD COUNT 6.1 4.5 - 11.0 thou/cu mm 02/14/2024 1:40 PM CDT [facility] RED BLOOD COUNT 4.74 4.00 - 5.20 mil/cu mm 02/14/2024 1:40 PM CDT [facility] HEMOGLOBIN 14.3 12.0 - 16.0 g/dL 02/14/2024 1:40 PM CDT [facility] HEMATOCRIT 42.6 33.0 - 51.0 % 02/14/2024 1:40 PM CDT [facility] MCV 90 80 - 100 fL 02/14/2024 1:40 PM CDT [facility] MCH 30.2 26.0 - 34.0 pg 02/14/2024 1:40 PM CDT [facility] MCHC 33.6 32.0 - 36.0 g/dL 02/14/2024 1:40 PM CDT [facility] RDW 13.9 11.5 - 15.5 % 02/14/2024 1:40 PM CDT [facility] PLATELET COUNT 270 140 - 440 thou/cu mm 02/14/2024 1:40 PM CDT [facility] MPV 9.3 6.5 - 11.0 fL 02/14/2024 1:40 PM CDT [facility] % NEUT 56.0 % 02/14/2024 1:40 PM CDT [facility] % LYMPH 33.0 % 02/14/2024 1:40 PM CDT [facility] % MONO 8.2 % 02/14/2024 1:40 PM CDT [facility] % EOS 2.1 % 02/14/2024 1:40 PM CDT [facility] % BASO 0.7 % 02/14/2024 1:40 PM CDT [facility] ABSOLUTE NEUTROPHILS 3.4 1.7 - 7.0 thou/cu mm 02/14/2024 1:40 PM CDT [facility] ABSOLUTE LYMPHOCYTES 2.0 0.9 - 2.9 thou/cu mm 02/14/2024 1:40 PM CDT [facility] ABSOLUTE MONOCYTES 0.5 <0.9 thou/cu mm 02/14/2024 1:40 PM CDT [facility] ABSOLUTE EOSINOPHILS 0.1 <0.5 thou/cu mm 02/14/2024 1:40 PM CDT [facility] ABSOLUTE BASOPHILS 0.0 <0.3 thou/cu mm 02/14/2024 1:40 PM CDT [facility] Blood BLOOD SPECIMEN / Unknown Venipuncture / Unknown 02/14/2024 1:32 PM CDT 02/14/2024 1:32 PM CDT Shirley Lopez MD HEMATOLOGY [facility] [address] [place] [address], * HEMOGLOBIN A1C SCREENING (02/14/2024 1:32 PM CDT) HEMOGLOBIN A1C SCREENING 5.9 <=6.4 % 02/15/2024 9:06 AM CDT [facility] Blood BLOOD SPECIMEN / Unknown Venipuncture / Unknown 02/14/2024 1:32 PM CDT 02/14/2024 1:32 PM CDT Narrative [facility] - 02/15/2024 9:06 AM CDT ? (<5.7%) ?Normal ? (5.7% to 6.4%) ? Indicates prediabetes ? (>=6.5%) ? Confirms diabetes Falsely low levels may be seen with: Recent Transfusion, Recent Significant Blood Loss, Hemolytic Diseases, or Falsely elevated levels may be seen with: Untreated Anemias, Splenectomy Shirley Lopez MD CHEMISTRY Performing Organization Address [facility] de Phone Number [facility] [address] [place] [id number], * TSH WITH REFLEX (02/14/2024 1:32 PM CDT) TSH 2.17 0.27 - 4.20 uIU/mL 02/15/2024 1:33 AM CDT [facility] Blood BLOOD SPECIMEN / Unknown Venipuncture / Unknown 02/14/2024 1:32 PM CDT 02/14/2024 1:32 PM CDT Narrative [facility] - 02/15/2024 1:33 AM CDT In Adults, TSH values between 5.00 and 10.00 uIU/ml do not necessarily indicate the presence of Hypothyroidism. Correlation with clinical findings such as presence of goiter and/or Thyroperoxidase (TPO) Antibody may be helpful. For more information please refer to DYLAN 2004; 291: 228-238. Shirley Lopez MD CHEMISTRY Performing Organization Address [facility] de Phone Number [facility] [address] [place] [id number], * (ABNORMAL) COMP METABOLIC PANEL (02/14/2024 1:32 PM CDT) Pathologist [facility] SODIUM 141 136 - 145 mmol/L 02/15/2024 1:33 AM CDT [facility] POTASSIUM 4.0 3.5 - 5.1 mmol/L 02/15/2024 1:33 AM CDT [facility] CHLORIDE 104 98 - 107 mmol/L 02/15/2024 1:[address] [facility] CO2,TOTAL 26 22 - 29 mmol/L 02/15/2024 1:[address] [facility] ANION GAP 11 5 - 18 02/15/2024 1:[address] [facility] GLUCOSE 92 70 - 99 mg/dL 02/15/2024 1:[address] [facility] CALCIUM 9.5 8.6 - 10.0 mg/dL 02/15/2024 1:[address] [facility] BUN 17 6 - 20 mg/dL 02/15/2024 1:[address] [facility] CREATININE 0.71 0.50 - 0.90 mg/dL 02/15/2024 1:[address] [facility] BUN/CREAT RATIO 24(H) 10 - 20 1:[address] [facility] eGFR >90 >90 mL/min/1.7 3m2 02/15/2024 1:[address] [facility] Comment:As of 2021, eG FR is calculated by the CKD-EPI creatinine equation without race adjustment. ??eGFR can be influenced by muscle mass, exercise, and diet. ??The reported eGFR is an estimation only and is only applicable if the renal function is stable. ALBUMIN 4.7 4.0 - 4.9 g/dL 02/15/2024 1:[address] [facility] PROTEIN,TOTAL 7.4 6.0 - 8.0 g/dL 02/15/2024 1:[address] [facility] BILIRUBIN,TOTAL 0.4 0.0 - 1.2 mg/dL 02/15/2024 1:[address] [facility] ALK PHOSPHATASE 115(H) 35 - 104 IU/L 02/15/2024 1:[address] [facility] ALT (SGPT) 38(H) 10 - 35 IU/L 02/15/2024 1:[address] [facility] AST (SGOT) 35 10 - 35 IU/L 02/15/2024 1:33 AM CDT [facility] Blood BLOOD SPECIMEN / Unknown Venipuncture / Unknown 02/14/2024 1:32 PM CDT 02/14/2024 1:32 PM CDT Shirley Lopez MD CHEMISTRY [facility] [address] [place] [address], * XR MAMMO BILAT SCREENING (05/17/2023 3:32 PM CDT) Anatomical Region Laterality Modality BREASTS, Breast Left, Breast Right Bilateral Mammography Impressions 05/17/2023 4:01 PM CDT ??There is no radiographic evidence for malignancy. ??Recommend annual mammograms. MAMMOGRAM ASSESSMENT: ??ACR 1 Negative PATIENTS: You will also receive a letter with your examination results in an easy to read format. ??If you have questions about your results, please contact your referring provider. Narrative 05/17/2023 4:01 PM CDT For Patients: As a result of the Century Cures Act, medical imaging exams and procedure reports are released immediately into your electronic medical record. You may view this report before your referring provider. If you have questions, please contact your health care provider. XR MAMMO BILAT SCREENING [[id number]] CLINICAL HISTORY: ??This is an asymptomatic 58 y.o. patient. INDICATION FOR EXAM: Mammogram Screening. TECHNIQUE: CC & MLO views were obtained. ??This study was evaluated with the assistance of Computer-Aided Detection. COMPARISON FILM: Yes 05/04/20 [facility] [email or web address] 06/01/17 [facility] FINDINGS: ??The breasts have scattered areas of fibroglandular density. There are no dominant masses, suspicious micro calcifications or areas of architectural distortion. Shirley Lopez MD MAMMO * (ABNORMAL) LIPID PANEL W REFLEX MEASURED LDL (04/14/2023 3:47 PM CDT) CHOLESTEROL,TOTAL 195 100 - 199 mg/dL 04/15/2023 4:40 AM CDT [facility] Comment: Cholesterol, Total Reference Ranges Desirable <200 mg/dL Borderline 200-239 mg/dL High >=240 mg/dL TRIGLYCERIDES 360(H) <150 mg/dL 04/15/2023 4:40 AM CDT [facility] HDL CHOLESTEROL 44 >40 mg/dL 4:40 AM CDT [facility] NON-HDL CHOLESTEROL 151(H) <145 mg/dl 04/15/2023 4:40 AM CDT [facility] CHOL/HDL RATIO 4.43 <4.50 04/15/2023 4:40 AM CDT [facility] LDL CHOLESTEROL 79 <=130 mg/dL 04/15/2023 4:40 AM CDT [facility] VLDL CHOLESTEROL 72(H) <=30 mg/dL 04/15/2023 4:40 AM CDT [facility] PROVIDER ORDERED STATUS RANDOM 04/15/2023 4:40 AM CDT [facility] Blood BLOOD SPECIMEN / Unknown Venipuncture / Unknown 04/14/2023 3:47 PM CDT 04/14/2023 3:47 PM CDT Shirley Lopez MD CHEMISTRY [facility] [address] [place] [id number], * ANTI HCV (05/19/2022 10:50 AM CDT) Pathologist [facility] HEPATITIS C ANTIBODY Non-React tamica Non-React tamica 05/20/2022 3:39 AM CDT [facility] Comment:Antibodies to HCV no t detected; does not exclude the possibility of exposure to HCV. Blood BLOOD SPECIMEN / Unknown Venipuncture / Unknown 05/19/2022 10:50 AM CDT 05/19/2022 10:54 AM CDT Radha MCDONOUGH SEND OUTS [facility] [address] [place] [address], * COLONOSCOPY (06/09/2017 8:22 AM CDT) 06/09/2017 8:22 AM CDT Narrative Transcriptions Ellis Mejia MD - 06/09/2017 8:59 AM CDT Patient Name: Roxana Bisping Procedure Date: 06/09/2017 Gender: Female Date of : 1965 Admit Type: Outpatient Procedure: Colonoscopy Proceduralist: Ellis Mejia MD , Chen William (Nurse) Indications/Pre-Op Diagnosis: Screening for colorectal malignant neoplasm, Last colonoscopy: date unknown (unable to locate last colonoscopy report), Last colonoscopy 10 years ago Medications: Midazolam 2 mg IV, Fentanyl 200 microgramsIV, The level of sedation administered wasmoderate Procedure Description: The patient had risks, benefits and alternatives explained to andgave informed consent. The patient had a stable cardiopulmonary status and judged an adequate candidate for conscious sedation. The [id number] was passed through the anus and advanced tothe cecum, identified by appendiceal orifice and ileocecal valve. The colonoscopy was performed without difficulty. The patient toleratedthe procedure well. The quality of the bowel preparation was excellent.The ileocecal valve, appendiceal orifice, and rectum were photographed. Complications: No immediate complications. Estimated Blood Loss & Specimen: Estimated blood loss: none. Specimen collected - None Findings: The perianal and digital rectal examinations were normal. The entire examined colon appeared normal on direct and retroflexion views. Impressions/Post-Op Diagnosis: - The entire examined colon is normal on direct and retroflexionviews. - No specimens collected. Recommendation: - Patient has a contact number available for emergencies. The signsand symptoms of potential delayed complications were discussed with the patient. Return to normal activities tomorrow. Written discharge instructions were provided to the patient. - Resume previous diet. - Continue present medications. - Repeat colonoscopy in 10 years for screening purposes. Moderate Sedation: Moderate (conscious) sedation was administered by the endoscopy nurse and supervised by the endoscopist. The following parameters were monitored: oxygen saturation, heart rate, respiratory rate, blood pressure, adequacy of pulmonary ventilation and reponse to care. [facility] flow[facility]ets and nursing notes for moderate sedation details. Total physician intraservice time was 17 minutes. Ellis Mejia MD 06/09/2017 8:59:00 AM This report has been signed electronically. Note Initiated On: 06/09/2017 8:22 AM Procedure Code(s): --- Professional --- 48838, Colonoscopy, flexible; diagnostic, including collection of specimen(s) bybrushing or washing, when performed (separateprocedure) Diagnosis Code(s): --- Professional --- Z12.11, Encounter for screening formalignant neoplasm of colon CPT copyright 2016 [employer]. All rights reserved. The codes documented in this report are preliminary and upon commercial loan analyst reviewmay be revised to meet current compliance requirements. Scope In: 8:40:43 AM Scope Withdrawal Time 0 hours 8 minutes 48 seconds Scope Out: 8:55:10 AM Ellis Mejia MD PROCEDURE ORD from Last 3 Months or Most Recently Relevant to Health Maintenance Advance Directives * Full Code (Latest Code Status on File) Date Activated Date Inactivated Comments 08/05/2022 10:49 AM 08/06/2022 2:31 PM Question Answer Comments Code Status Discussion: Per Existing Order Care Teams Regional Clinical Director Relationship Specialty Start Date End Date Shirley Lopez MD [address] [place] [address] PCP - General Family Practice 04/14/23
== END 2024-03-05 12:19 | disposition home or self-care (01) ==
LOC: US 12:21
PROVIDERS: PCP Family Medicine; Visit Provider Physician Assistant Surgical
DX: I82.409 Acute embolism and thrombosis of unspecified deep veins of unspecified lower extremity (principal); M79.604 Pain in right leg
CPT/HCPCS: 93971

== ENCOUNTER 2024-05-09 06:07 | Day surgery (SDC) | payer OTHER, SELFPAY ==
[2024-05-09] VITALS (12 sets, daily range): BP systolic 131–159; BP diastolic 78–109; PULSE 80–99; RESP 10–16; TEMP 36.6–37.2; O2SAT 92–98; BMI 33.4
--- OUTSIDE RECORDS SUMMARY | 2024-05-09 06:10 | XMS_ITS | Clinical Summary ---
Author Organization [facility] Address [place], [place] [address] Care Team Providers Care Sweatband Perforator Name Role Phone Shirley Lopez MD Primary Care Provider Allergies Active Allergy Reactions Criticality Noted Date Comments Adhesive Tape-Silicones Rash 09/13/2022 Fentanyl Other - Describe In Comment Field 02/14/2024 Difficulty waking from surgery Morphine Agitation 06/09/2017 Promethazine Paresthesias 03/20/2012 Azithromycin Diarrhea 03/05/2009 Medications Medication Sig Dispensed Refills Start Date End Date Status cholecalciferol (VITAMIN D) 1,000 unit tabletIndications:Yesenia ual physical exam Take 1 tablet by mouth once daily. 0 05/23/2017 Active multivitamin (MVI) tablet Take 1 Tablet by mouth once daily. 0 09/30/2021 Active levothyroxine (SYNTHROID) 88 mcg tabletIndications:Acq uired hypothyroidism Take 1 Tablet (88 mcg) by mouth once daily. 100 Tablet 3 04/14/2023 Active Eliquis 5 mg tablet Take 5 mg by mouth two times daily. 03/11/2024 Active triamcinolone (ARISTOCORT; KENALOG) 0.1 % creamIndications:Claudy rgic dermatitis Apply topically to affected area(s) two times daily. 30 g 03/13/2024 Active apixaban (ELIQUIS) 5 mg tabletIndications:Acu te deep vein thrombosis (DVT) of right peroneal vein (HC) Take 1 Tablet (5 mg) by mouth two times daily. 152 Tablet 03/16/2024 Active Active Problems Problem Noted Date Diagnosed Date Primary osteoarthritis of right knee 11/24/2023 Primary osteoarthritis of left knee 11/24/2023 Complete small bowel obstruction 04/14/2023 Prediabetes 08/02/2022 Routine adult health maintenance 06/09/2017 Overview (06/09/2017): Colonoscopy 06/2017 normal repeat in 10 years Seasonal affective disorder 05/23/2017 Migraine Unspecified hypothyroidism Encounters Date Type Department Care Team Description 05/07/2024 Refill [facility] [address] [facility] [place] [address] Shirley Lopez MD Refill Request (Levothyroxine) 05/06/2024 1:00 PM CDT Preop Visit [facility] [address] [facility] [place] [address] Bri Montes De Oca MD Preoperative Exam (Pre-op DOS 05/09, Dr Marvin, [facility], ) 05/06/2024 Travel 05/03/2024 Telephone [facility] [address] [place] [address] Shirley Lopez MD Preoperative Exam 05/03/[address] [place] [address] Yarleis Mccloud PA Care Coordination (Eliquis) 05/02/2024 Orders Only [facility] [address] [facility] [place] [address] Shirley Lopez MD <No scans attached> 04/30/2024 Telephone [facility] [address] [place] [address] Mary Grace Nuñez DO Preoperative Exam 04/30/2024 Travel 03/13/2024 2:20 PM CDT Office Visit [facility] [address] [place] [address] Shirley Lopez MD Follow Up (Blood clots in rt leg 03/05/24) 03/13/2024 Travel 03/05/2024 Orders Only [facility] Scanner 1 scan: (1-Ord) [place], [place], 03/05/2024 03/05/2024 Orders Only [facility] Scanner 1 scan: (1-Ord) [facility] [place], 03/05/2024 02/28/2024 Orders Only [facility] Scanner 1 scan: (1-Ord) [facility], [place] RT 2 VIEW, 02/28/2024 02/16/2024 Telephone [facility] [address] [place] [address] Shirley Lopez MD Results 02/14/2024 12:40 PM CDT Preop Visit [facility] [address] [place] [address] Shirley Lopez MD Preoperative Exam (02/28/24 Right knee replacement [facility] ) 02/14/2024 Travel from Last 3 Months Immunizations Name Administration Dates Next Due COVID-19 vaccine (Hemarina-Bio NTech 30mcg/0.3mL) KAREN ORONA 06/04/2021,05/12/2021 Influenza Intradermal PF 18-64 yrs 05/27/2016 [...] Sign Reading Time Taken Comments Blood Pressure 115/79 05/06/2024 1:04 PM CDT Pulse 91 05/06/2024 1:04 PM CDT Temperature 37.1 ??C (98.7 ??F) 03/13/2024 2:26 PM CD T Respiratory Rate 18 08/22/2023 6:49 PM [employer] Oxygen Saturation 95% 05/06/2024 1:04 PM CDT Inhaled Oxygen Concentration - - Weight 89.8 kg (198 lb) 05/06/2024 1:04 PM CDT Height 163.6 cm (5' 4.41) 04/14/2023 2:40 PM CD T Body Mass Index 33.56 04/14/2023 2:40 PM CDT Plan of Treatment Health Maintenance Due Date Last Done Comments HIV for age 15-65 1982 Zoster (shingles) series for age 50+ (1 of 2) 2017 COVID-19 vaccine series (3 - season) 2024 06/04/2021, 05/12/2021 Influenza for age 50-64 04/07/2024 05/18/20 22, 05/01/2021, 05/30/2020, Additional history exists BMI (ht [...] Procedure Name Priority Date/Time Associated Diagnosis Comments SCAN-ULTRASOUND REPORT 03/05/2024 12:00 AM CDT SCAN-ULTRASOUND REPORT 03/05/2024 12:00 AM CDT SCAN-RADIOLOGY REPORT 02/28/2024 12:00 AM CDT CBC WITH AUTO DIFFERENTIAL Routine 02/14/2024 1:32 PM CDT Fatigue, unspecified type TSH WITH REFLEX Routine 02/14/2024 1:32 PM CDT Fatigue, unspecified type CBC WITH AUTO DIFFERENTIAL Routine 02/14/2024 1:32 PM CDT Fatigue, unspecified type COMP METABOLIC PANEL Routine 02/14/2024 1:32 PM CDT Fatigue, unspecified type HEMOGLOBIN A1C Routine 02/14/2024 1:32 PM CDT Prediabetes XR [...] Recently Relevant to Health Maintenance Results * SCAN-ULTRASOUND REPORT (03/05/2024 12:00 AM CDT) Only the most recent of2 resultswithin the time period is included. Anatomical Region Laterality Modality Other Scanner OTHER * SCAN-RADIOLOGY REPORT (02/28/2024 12:00 AM CDT) Anatomical Region Laterality Modality Other Scanner OTHER * CBC WITH AUTO DIFFERENTIAL (02/14/2024 1:32 PM CDT) WHITE BLOOD COUNT 6.1 4.5 - 11.0 thou/cu mm 02/14/2024 1:40 PM CDT [facility] RED BLOOD COUNT 4.74 4.00 - 5.20 mil/cu mm 02/14/2024 1:40 PM CDT [facility] HEMOGLOBIN 14.3 12.0 - 16.0 g/dL 02/14/2024 1:40 PM CDT [facility] HEMATOCRIT 42.6 33.0 - 51.0 % 02/14/2024 1:40 PM CDT [facility] MCV 90 80 - 100 fL 02/14/2024 1:40 PM CDT [facility] MCH 30.2 26.0 - 34.0 pg 02/14/2024 1:40 PM CDT [facility] MCHC 33.6 32.0 - 36.0 g/dL 02/14/2024 1:40 PM CDT [facility] RDW 13.9 11.5 - 15.5 % 02/14/2024 1:40 PM CDT [facility] PLATELET COUNT 270 140 - 440 thou/cu mm 02/14/2024 1:40 PM CDT [facility] MPV 9.3 6.5 - 11.0 fL 02/14/2024 1:40 PM CDT [facility] % NEUT 56.0 % 02/14/2024 1:40 PM CDT [facility] % LYMPH 33.0 % 02/14/2024 1:40 PM CDT [facility] % MONO 8.2 % 02/14/2024 1:40 PM CDT [facility] % EOS 2.1 % 02/14/2024 1:40 PM CDT [facility] % BASO 0.7 % 02/14/2024 1:40 PM CDT [facility] ABSOLUTE NEUTROPHILS 3.4 1.7 - 7.0 thou/cu mm 02/14/2024 1:40 PM CDT [facility] ABSOLUTE LYMPHOCYTES 2.0 0.9 - 2.9 thou/cu mm 02/14/2024 1:40 PM CDT [facility] ABSOLUTE MONOCYTES 0.5 <0.9 thou/cu mm 02/14/2024 1:40 PM CDT [facility] ABSOLUTE EOSINOPHILS 0.1 <0.5 thou/cu mm 02/14/2024 1:40 PM CDT [facility] ABSOLUTE BASOPHILS 0.0 <0.3 thou/cu mm 02/14/2024 1:40 PM CDT [facility] Blood BLOOD SPECIMEN / Unknown Venipuncture / Unknown 02/14/2024 1:32 PM CDT 02/14/2024 1:32 PM CDT Shirley Lopez MD HEMATOLOGY [facility] [address] [place] [address], * HEMOGLOBIN A1C SCREENING (02/14/2024 1:32 PM CDT) HEMOGLOBIN A1C SCREENING 5.9 <=6.4 % 02/15/2024 9:06 AM CDT [facility] Blood BLOOD SPECIMEN / Unknown Venipuncture / Unknown 02/14/2024 1:32 PM CDT 02/14/2024 1:32 PM CDT Narrative [facility] - 02/15/2024 9:06 AM CDT ? (<5.7%) ?Normal ? (5.7% to 6.4%) ? Indicates prediabetes ? (>=6.5%) ? Confirms diabetes Falsely low levels may be seen with: Recent Transfusion, Recent Significant Blood Loss, Hemolytic Diseases, or Falsely elevated levels may be seen with: Untreated Anemias, Splenectomy Shirley Lopez MD CHEMISTRY [facility] [address] [place] [address], * TSH WITH REFLEX (02/14/2024 1:32 PM CDT) TSH 2.17 0.27 - 4.20 uIU/mL 02/15/2024 1:33 AM CDT [facility] Blood BLOOD SPECIMEN / Unknown Venipuncture / Unknown 02/14/2024 1:32 PM CDT 02/14/2024 1:32 PM CDT Narrative [facility] - 02/15/2024 1:33 AM CDT In Adults, TSH values between 5.00 and 10.00 uIU/ml do not necessarily indicate the presence of Hypothyroidism. Correlation with clinical findings such as presence of goiter and/or Thyroperoxidase (TPO) Antibody may be helpful. For more information please refer to DYLAN 2004; 291: 228-238. Shirley Lopez MD [facility] [address] [place] [address], * (ABNORMAL) COMP METABOLIC PANEL (02/14/2024 1:32 PM CDT) SODIUM 141 136 - 145 mmol/L 02/15/2024 1:33 AM CDT [facility] POTASSIUM 4.0 3.5 - 5.1 mmol/L 02/15/2024 1:33 AM T [facility] CHLORIDE 104 98 - 107 mmol/L 02/15/2024 1:33 AM T [facility] CO2,TOTAL 26 22 - 29 mmol/L 02/15/2024 1:33 AM T [facility] ANION GAP 11 5 - 18 02/15/2024 1:33 AM CDT [facility] GLUCOSE 92 70 - 99 mg/dL 02/15/2024 1:33 AM T [facility] CALCIUM 9.5 8.6 - 10.0 mg/dL 02/15/2024 1:33 AM T [facility] BUN 17 6 - 20 mg/dL 02/15/2024 1:33 AM T [facility] CREATININE 0.71 0.50 - 0.90 mg/dL 02/15/2024 1:33 AM T [facility] BUN/CREAT RATIO 24(H) 10 - 20 4 1:33 AM T [facility] eGFR >90 >90 mL/min/1.7 3m2 02/15/2024 1:33 AM T [facility] Comment:As of 2021, eG FR is calculated by the CKD-EPI creatinine equation without race adjustment. ??eGFR can be influenced by muscle mass, exercise, and diet. ??The reported eGFR is an estimation only and is only applicable if the renal function is stable. ALBUMIN 4.7 4.0 - 4.9 g/dL 02/15/2024 1:33 AM CDT [facility] PROTEIN,TOTAL 7.4 6.0 - 8.0 g/dL 02/15/2024 1:33 AM CDT [facility] BILIRUBIN,TOTAL 0.4 0.0 - 1.2 mg/dL 02/15/2024 1:33 AM CDT [facility] ALK PHOSPHATASE 115(H) 35 - 104 IU/L 02/15/2024 1:33 AM CDT [facility] ALT (SGPT) 38(H) 10 - 35 IU/L 02/15/2024 1:33 AM CDT [facility] AST (SGOT) 35 10 - 35 IU/L 02/15/2024 1:33 AM CDT [facility] Blood BLOOD SPECIMEN / Unknown Venipuncture / Unknown 02/14/2024 1:32 PM CDT 02/14/2024 1:32 PM CDT Shirley Lopez MD CHEMISTRY [facility] [address] [place] [address], * XR MAMMO BILAT SCREENING (05/17/2023 3:32 [...] health care provider. XR MAMMO BILAT SCREENING [[id number]] CLINICAL HISTORY: ??This is an asymptomatic 58 y.o. patient. INDICATION FOR EXAM: Mammogram Screening. TECHNIQUE: CC & MLO views were obtained. ??This study was evaluated with the assistance of Computer-Aided Detection. COMPARISON FILM: Yes 05/04/20 [facility] Contemporary Analysis 06/01/17 [facility] FINDINGS: ??The breasts have scattered areas of fibroglandular density. There are no dominant masses, suspicious micro calcifications or areas of architectural distortion. Shirley Lopez MD MAMMO * (ABNORMAL) LIPID PANEL W REFLEX MEASURED LDL (04/14/2023 3:47 PM CDT) CHOLESTEROL,TOTAL 195 100 - 199 mg/dL 04/15/2023 4:40 AM T [facility] Comment: Cholesterol, Total Reference Ranges Desirable <200 mg/dL Borderline 200-239 mg/dL High >=240 mg/dL TRIGLYCERIDES 360(H) <150 mg/dL 04/15/2023 4:40 AM CDT [facility] HDL CHOLESTEROL 44 >40 mg/dL 4:40 AM T [facility] NON-HDL CHOLESTEROL 151(H) <145 mg/dl 04/15/2023 4:40 AM T [facility] CHOL/HDL RATIO 4.43 <4.50 04/15/2023 4:40 AM T [facility] LDL CHOLESTEROL 79 <=130 mg/dL 04/15/2023 4:40 AM T [facility] VLDL CHOLESTEROL 72(H) <=30 mg/dL 04/15/2023 4:40 AM T [facility] PROVIDER ORDERED STATUS RANDOM 04/15/2023 4:40 AM T [facility] Blood BLOOD SPECIMEN / Unknown Venipuncture / Unknown 04/14/2023 3:47 PM CDT 04/14/2023 3:47 PM CDT Shirley Lopez MD CHEMISTRY [facility] [address] [place] [address], [place] * ANTI HCV (05/19/2022 10:50 AM CDT) HEPATITIS C ANTIBODY Non-React tamica Non-React tamica 05/20/2022 3:39 AM CDT [facility] Comment:Antibodies to HCV no t detected; does not exclude the possibility of exposure to HCV. Blood BLOOD SPECIMEN / Unknown Venipuncture / Unknown 05/19/2022 10:50 AM CDT 05/19/2022 10:54 AM CDT [facility] [address] [place] [address], [place] * COLONOSCOPY (06/09/2017 8:22 AM CDT) 06/09/2017 [...] adequate candidate for conscious sedation. The [id number] was passed through the anus and advanced [...] reponse to care. [facility] and nursing notes for moderate sedation details. Total physician intraservice time was 17 minutes. Ellis Mejia MD 06/09/2017 8:59:00 AM This report has been signed electronically. Note Initiated On: 06/09/2017 8:22 AM Procedure Code(s): --- Professional --- 81007, Colonoscopy, flexible; diagnostic, including collection of specimen(s) bybrushing or washing, when performed (separateprocedure) Diagnosis Code(s): --- Professional --- Z12.11, Encounter for screening formalignant neoplasm of colon CPT copyright 2016 [employer]. All rights reserved. The codes documented in this report are preliminary and upon certified medical coder reviewmay be revised to meet current compliance [...] Status Discussion: Per Existing Order Care Teams Sweatband Perforator Relationship Specialty Start Date End Date Shirley Lopez MD [address] [place] [address] PCP - General Family Practice 04/14/23
[2024-05-09] MEDS: LACTATED RINGERS 1000 ML 1,000 ML 100 ML IV (06:30)
[2024-05-09] MEDS: SODIUM CHLORIDE 0.9 % (FLUSH) 10 ML SYRINGE IVF (06:30)
--- NOTE | 2024-05-09 07:10 | W.PM.H&PU ---
History & Physical Update History & Physical Update H&P Reviewed and patient assessed: No changes noted
[2024-05-09] MEDS: MEPERIDINE 25 MG/ML INJ 12.5 MG IVP (07:57)
[2024-05-09] MEDS: HYDROmorphone 0.5 mg/0.5 ml inj IVP (08:02)
[2024-05-09] MEDS: ONDANSETRON 2 MG/ML inj 4 MG IVP (08:07)
--- NOTE | 2024-05-09 08:23 | SUR.PHASEI ---
patient met discharge criteria per anesthesia
--- NOTE | 2024-05-09 08:40 | P.ORPRC_ITS ---
Procedure Note Date of procedure: 05/09/24 Procedure: PREOPERATIVE DIAGNOSIS: 1. Right knee stiffness/arthrofibrosis after total knee arthroplasty POSTOPERATIVE DIAGNOSIS: 1. Right knee stiffness/arthrofibrosis after total knee arthroplasty PROCEDURE: 1. Right knee manipulation under anesthesia SURGEON: Quang Garcia M.D. MANUFACTURING STOREPERSON: Lakhwinder ANESTHESIA: General LMA EBL: None TOURNIQUET: None COMPLICATIONS: None evident INDICATIONS: The patient is a pleasant 59-year-old female who underwent right TKA 02/28/2024. Initially, she was restoring her range of motion, but unfortunately had a significant setback. In addition, she had a calf DVT identified which subsequently prompted Eliquis administration for 3 months. She has noticed declining range of motion and increasing stiffness about this right knee. Clinical exam was suspicious for arthrofibrosis/excessive knee stiffness. It was felt that a manipulation under anesthesia would be prudent. FINDINGS: Preprocedure range of motion was 20-85? After manipulation with over pressure ROM is 0-125? After ALBA but without over pressure ROM is 5-115? DESCRIPTION OF PROCEDURE: After a thorough discussion of risks, benefits, and alternatives, the patient was brought to the operating room and induction of an esthesia undertaken. Appropriate time-out was performed identifying proper patient, site, and procedure. The right lower extremity underwent manipulation under anesthesia after 1st assessing the range of motion as noted above. We began with mobilizing the patella. This had 2nd quadrant translation medially and 1st quadrant laterally. Relatively decent patellar range of motion. Knee flexion was then performed while flexing the hip to approximately 90?, the knee was steadily slowly flexed with a short lever arm to that achieved above. Knee extension was then slowly, cautiously worked on achieving the numbers noted above. The patient was awoken from anesthesia and transferred to the PACU in stable condition. PLAN: 1. Weightbear as tolerated operative extremity. Crutch / walker ambulation assistance PRN. 2. Ice, acetominophen and/or ibuprofen, and oxycodone for pain as needed. 3. Knee range of motion and quad sets/straight leg raise regularly 4. Follow up with PA visit in 1-2 weeks for a wound check and possibly to initiate physical therapy. 5. CPM machine to the right knee with parameters as previously a stanorm wished. 6. Increase physical therapy visit frequency (at least 3 times per week)
--- NOTE | 2024-05-09 08:48 | W.ANESCHARGE ---
Anesthesia Charges Start Date/Time Anesthesia Start Date: 05/09/24 Anesthesia Start Time: 07:10 Stop Date/Time Anesthesia Stop Date: 05/09/24 Anesthesia Stop Time: 07:53
[2024-05-09] MEDS: OXYCODONE 5 MG TABLET PO (09:15)
--- NOTE | 2024-05-09 10:16 | W.ANESCHARGE ---
Anesthesia Charges Start Date/Time Anesthesia Start Date: 05/09/24 Anesthesia Start Time: 07:10 Stop Date/Time Anesthesia Stop Date: 05/09/24 Anesthesia Stop Time: 07:53
== END 2024-05-09 09:45 | disposition home or self-care (01) ==
PROVIDERS: PCP Family Medicine; Visit Provider Orthopaedic Surgery Sports Medicine
PROC: (CPT 29870; principal; 2024-05-09 07:15)
DX: M24.661 Ankylosis, right knee (principal); Z96.651 Presence of right artificial knee joint
CPT/HCPCS: 27570; 01380; A9270; J1100; J1171; J2175; J2250; J2405; J3010; J7120